=== PATIENT | male | born 1955 | race Caucasian/White ===

== ENCOUNTER → 2017-10-18 | Outpatient (CLI) | payer OTHER ==
[~2017-10-18] MED LIST: ASPI81TA28 PO; ATOR10TA82 PO; LISI-725 PO; OMEG10007 PO; OXYC-57 PO
--- NOTE | 2017-10-18 14:47 | DIAGNOSTIC IMAGING REPORT ---
ABDOMEN ULTRASOUND FOR HERNIA CLINICAL HISTORY: ABD/PELVIC PAIN,POSSIBLE HERNIA COMPARISON STUDY: None. FINDINGS: Real-time sonographic imaging of the right inguinal region was performed. There is a small nonreducible fat-containing right inguinal hernia. No bowel identified within the hernia sac. No lymph nodes are masses within the right groin. IMPRESSION: Small nonreducible fat-containing right inguinal hernia. Electronically signed by: Henrry Moore M.D. 10/18/2017 2:45 PM Dictated Date/Time: 10/18/2017 2:45 PM
== END | disposition home or self-care (01) ==
LOC: C.ULTR 14:10
PROVIDERS: ATTEND Family Medicine
DX: R10.2 Pelvic and perineal pain (principal); K40.90 Unilateral inguinal hernia, without obstruction or gangrene, not specified as recurrent

== ENCOUNTER → 2017-10-24 | Outpatient (CLI) | payer OTHER ==
--- NOTE | 2017-10-24 11:56 | DIAGNOSTIC IMAGING REPORT ---
CHEST 2 VIEWS ROUTINE CLINICAL HISTORY: PAT preoperative COMPARISON STUDY: No previous studies for comparison. FINDINGS: The bones soft tissues and hemidiaphragms are normal. The cardiomediastinal silhouette is normal. The lungs are clear. The pulmonary vasculature is normal. IMPRESSION: Negative chest. The above report was generated using voice recognition software. It may contain grammatical, syntax or spelling errors. Electronically signed by: Leandro Guadalupe M.D. 10/24/2017 11:54 AM Dictated Date/Time: 10/24/2017 11:54 AM
[2017-10-24 13:05] LABS: BASO % 0.4 %; BASO ABS # 0.02 K/uL (0-0.2); EOS % 1.2 %; EOS ABS # 0.06 K/uL (0-0.5); HEMATOCRIT 43.7 % (42-52); HEMOGLOBIN 14.4 g/dL (14.0-18.0); LYMPH % 35.5 %; LYMPH ABS # 1.77 K/uL (1.2-3.4); MEAN CELL VOLUME 85.2 fL (80-100); MEAN CORPUSCULAR HEMOGLOBIN 28.1 pg (25-34); MEAN PLATELET VOLUME 13.4 fL (7.4-10.4); MONO % 9.2 %; MONO ABS # 0.46 K/uL (0.11-0.59); NEUT % 53.7 %; NEUT ABS # 2.67 K/uL (1.4-6.5); PLATELET COUNT 162 K/uL (130-400); RED CELL DISTRIBUTION WIDTH SD 43.4 fL (36.4-46.3); WHITE BLOOD COUNT 4.98 K/uL (4.8-10.8)
[2017-10-24 13:44] LABS: ALBUMIN 4.2 gm/dl (3.4-5.0); TOTAL PROTEIN 7.4 gm/dl (6.4-8.2)
== END | disposition home or self-care (01) ==
LOC: C.CPL 14:29
PROVIDERS: ATTEND Surgery
DX: Z01.812 Encounter for preprocedural laboratory examination (principal); Z01.810 Encounter for preprocedural cardiovascular examination

== ENCOUNTER 2017-10-31 09:34 | Day surgery (SDC) | payer OTHER ==
[2017-10-23 14:55] VITALS: BMI 34.0
[2017-10-24 11:56] VITALS: BMI 34.0
[~2017-10-31] VITALS: Ht 188 cm; Wt 120.9 kg
[~2017-10-31 09:34] MED LIST changes: +CEFAZOLIN 3000MG IV PUSH 22.5 ML IV SCH; +LACTATED RINGER'S 1000ML 1,000 ML IV SCH; -OXYC-57 PO
[2017-10-31 10:01] VITALS: BP 152/98; PULSE 64; TEMP 36.6; O2SAT 98; Ht 188 cm; Wt 120.9 kg
--- NOTE | 2017-10-31 11:05 | History & Physical Bridge Note ---
H&P Re-Evaluation Bridge Note: I have examined the patient, reviewed the History & Physical and in the interval since the performance of the History & Physical I have noted the following changes of clinical significance: No changes noted
[2017-10-31] MEDS ORDERED: DEXAMETHASONE SOD INJ 4 MG/ML VIAL ONE (13:06)
[2017-10-31] MEDS ORDERED: LIDOCAINE HCL 2% 2 ML VIAL (20MG/ML) ONE (13:06)
[2017-10-31] MEDS ORDERED: PHENYLEPHRINE HCL INJ 10 MG/ML VIAL ONE (13:06)
[2017-10-31] MEDS ORDERED: ONDANSETRON INJ 2 MG/ML 2 ML VIAL ONE (13:06)
[2017-10-31] MEDS ORDERED: SUCCINYLCHOLINE CHLORIDE 20 MG/ML 10 ML VIAL IV ONE (13:06)
[2017-10-31] MEDS ORDERED: EpHEDrine SULFATE INJ 50 MG/ML AMP ONE (13:06)
[2017-10-31] MEDS ORDERED: GLYCOPYRROLATE INJ 0.2 MG/ML VIAL ONE (13:06)
[2017-10-31] MEDS ORDERED: MIDAZOLAM HCL 1 MG/ML 2ML VIAL ONE (13:07)
[2017-10-31] MEDS ORDERED: PROPOFOL IV EMULSION 10 MG/ML 20 ML VIAL ONE (13:07)
[2017-10-31] MEDS ORDERED: NEOSTIGMINE METHYLSULFATE 5 MG/5 ML SYR ONE (13:07)
[2017-10-31] MEDS ORDERED: FENTANYL CITRATE INJ 50 MCG/1 ML 2 ML VIAL ONE (13:07)
[2017-10-31] MEDS ORDERED: BUPIVACAINE 0.5 % 5 MG/1 ML PF 10ML VIAL ONE (13:42)
[2017-10-31] MEDS ORDERED: OXYC-57 PO (14:02)
--- NOTE | 2017-10-31 14:03 | Discharge Instructions ---
Discharge Instructions Date of Service Oct 31, 2017. Visit Reason for Visit: Right Inguinal Hernia, Umbilical Hernia Discharge Discharge Diagnosis / Problem: hernia repairs Discharge Goals Goal(s): Decrease discomfort Activity Recommendations Activity Limitations: as noted below Lifting Limitations: no more than 10 pounds Shower/Bathe: no limitations Driving or Machine Use: 1 week Anesthesia . Post Anesthesia Instructions: If you have had General Anesthesia or IV Sedation: * Do not drive today. * Resume driving when surgeon permits. * Do not make important decisions or sign legal documents today. * Call surgeon for: 1. Temperature elevations greater than 101 degrees F. 2. Uncontrollable pain. 3. Excessive bleeding. 4. Persistent nausea and vomiting. 5. Medication intolerance (nausea, vomiting or rash). * For nausea and vomiting use only clear liquids such as: tea, soda, bouillon until nausea subsides, then gradually increase diet as tolerated. * If you have any concerns or questions, call your surgeon's office. If physician is unavailable and it is an emergency, call 911 or go to the nearest emergency room. . Instructions / Follow-Up Instructions / Follow-Up Chambers in 1-2 weeks, call [phone] if you have any questions Diet Recommendations Recommended Home Diet: no limitations Pending Studies Studies pending at discharge: no Medical Emergencies . Who to Call and When: Medical Emergencies: If at any time you feel your situation is an emergency, please call 911 immediately. . Non-Emergent Contact Non-Emergency issues call your: Surgeon Call Non-Emergent contact if: you have a fever, temperature is above 101.5, your pain is not controlled, wound has increased redness, wound has increased pain, you have any medication questions . . "Provider Documentation" section prepared by Krunal Max. .
[2017-10-31] MEDS ORDERED: HYDROmorphone INJ 2 MG/ML SYR/VIAL ONE (14:22)
[2017-10-31] MEDS ORDERED: ROCURONIUM BROMIDE 10 MG/ML 5 ML VIAL ONE (15:13)
--- NOTE | 2017-10-31 15:49 | [facility] Post Operative Brief Note ---
Immediate Operative Summary Operative Date Oct 31, 2017. Pre-Operative Diagnosis Right Inguinal Hernia, Possible Left Inguinal Hernia, Umbilical Hernia Post-Operative Diagnosis Right Inguinal Hernia, Umbilical Hernia Procedure(s) Performed Laparoscopic Right Inguinal Hernia Repair, Open Umbilical Hernia Repair Surgeon Dr. William Altman Travel Rn Surgeon(s) Artem Max PA-C Estimated Blood Loss 4 ml Findings Consistent with Post-Op Diagnosis indirect right inguinal hernia; umbilical hernia repair with mesh Specimens none per surgeon Drains None Anesthesia Type General Complication(s) none Disposition Accompanied Pt To Recover: no Disposition: Recovery Room / PACU
[2017-10-31] MEDS ORDERED: LACTATED RINGER'S 1000ML 1,000 ML IV SCH (15:53)
--- NOTE | 2017-10-31 15:58 | [facility] Operative Report ---
Operative Report Operative Date Oct 31, 2017. Pre-Operative Diagnosis Right Inguinal Hernia, Possible Left Inguinal Hernia, Umbilical Hernia Post-Operative Diagnosis right indirect inguinal hernia; umbilical hernia Procedure(s) Performed Laparoscopic right inguinal hernia repair with mesh; umbilical hernia repair with mesh Surgeon Dr. William Altman Systems Requirements Planner Surgeon(s) Artem Max PA-C Estimated Blood Loss 4 ml Findings Indirect right inguinal hernia, pro-molded goods spot picker mesh placed. Left side not evaluated due to poor dissection. 3.5 cm umbilical hernia defect closed using 6.4 cm C- Qur mesh. Specimens none per surgeon Drains None Anesthesia General Complication(s) None Disposition Recovery Room / PACU Indications 62-year-old male with right inguinal hernia and umbilical hernia, plan for laparoscopic right inguinal hernia repair, possible left, open umbilical hernia repair. The risks of the procedure were discussed, all questions were answered , and the patient agreed to proceed with surgery as planned. Description of Procedure The patient was properly identified, consented, and taken to the operating room where he was placed in the supine position. General endotracheal anesthesia was induced. SCDs and a safety belt were placed. A mora catheter was placed. Preoperative antibiotics were administered. The patient's groins and abdomen were prepped and draped in the standard sterile fashion. Surgical timeout was performed and all parties were in agreement that this was the correct patient and procedure to be performed and we continued as planned. A curvilinear infraumbilical incision was made with electrocautery and deepened down to the fascia with blunt dissection. A transverse incision was made in the anterior rectus sheath on the right. The rectus muscle was pulled laterally exposing the posterior rectus sheath. A large Xochilt was used to bluntly dissect the preperitoneal space down to the pubic symphysis. This was then replaced with a laparoscopic preperitoneal dissection balloon, which was inflated under direct visualization and held in place for approximately 30 seconds. This was then removed and the preperitoneal space was insufflated with carbon dioxide which the patient tolerated without incident. Two 5 mm ports were then placed in the midline. Dissection started on the right, beginning laterally at the anterior superior iliac spine. Osman's ligament was then dissected medially. The cord structures were circumferentially dissected. A moderate sized indirect hernia was noted. It was dissected away from the cord structures and reduced. The dissection balloon did not seem to adequately dissect the left side, therefore we decided not to evaluate the left side for an inguinal hernia. Progrip mesh was placed on the right and covered the direct, indirect, and femoral spaces. The mesh was held in place, the ports were removed, and the space was allowed to collapse. The anterior rectus sheath fascia was closed with 0 Vicryl suture. Attention then turned to the umbilical hernia repair. The umbilical stalk was circumferentially dissected with a Xochilt, and divided below the level of the skin. A 3.5 cm fascial defect was encountered. The hernia was reduced. The fascia anteriorly and posteriorly was cleared of investing tissue for several centimeters. Hemostasis was achieved within the wound. A 6.4 cm piece of C-Qur mesh was sown into place with interrupted 0 Nurolon sutures. The wound was irrigated and hemostasis confirmed. The umbilicus was tacked down to the fascia with 3-0 Vicryl sutures. Local anesthetic in the form of 0.5% Marcaine was injected in the fascia and along the skin incision. The skin was closed with interrupted 3-0 Vicryl deep dermal sutures, followed by 4-0 Monocryl running subcuticular suture. The skin of all port sites were closed with 4-0 Monocryl subcuticular suture, and Dermabond was placed over the incisions. The patient was extubated in the operating room and taken to the PACU for recovery without apparent incident. Any air in the scrotum was reduced, and the testicles were confirmed to be in the scrotum. All sponge, instrument, and needle counts were correct at the conclusion of the procedure. The patient tolerated the procedure well. The physician's teachers' assistant was present and scrubbed for the entire to the procedure. He was critical in positioning the patient, prepping and draping, retraction and exposure, driving the laparoscope, repair of the hernias, closure of the incisions, and placement of the dressings. I attest to the content of the Intraoperative Record and any orders documented therein. Any exceptions are noted below.
[2017-10-31] MEDS ORDERED: OXYCODONE/ACETAMINOPHEN 5-325 TAB PO PRN (16:00)
[2017-10-31] MEDS ORDERED: ONDANSETRON INJ 2 MG/ML 2 ML VIAL IV PRN ×2 (16:00→16:30)
[2017-10-31] MEDS ORDERED: MoRPHine SULFATE 4 MG/ML 1 ML CARP\\VIAL IV PRN (16:00)
[2017-10-31] MEDS ORDERED: EpHEDrine SULFATE INJ 50 MG/ML AMP IV PRN (16:30)
[2017-10-31] MEDS ORDERED: FENTANYL CITRATE INJ 50 MCG/1 ML 2 ML VIAL IV PRN (16:30)
[2017-10-31] MEDS ORDERED: HYDROmorphone INJ 1 MG/ML SYR IV PRN (16:30)
[2017-10-31] MEDS ORDERED: ATROPINE SULFATE 0.1 MG/ML 5ML SYR IV PRN (16:30)
[2017-10-31] MEDS ORDERED: MEPERIDINE HCL 25 MG/ML CARP IV PRN (16:30)
[2017-10-31] MEDS ORDERED: LABETALOL HCL IV 5 MG/ML 20ML IV PRN (16:30)
[2017-10-31 17:00] VITALS: BP 157/101; PULSE 61; TEMP 36.6; O2SAT 99
--- NOTE | 2017-10-31 17:00 | Anesthesiology Progress Note ---
Anesthesia Post Op Note Date & Time Oct 31, 2017 at 17:00 Vital Signs Pain Intensity: 0 Vital Signs Past 12 Hours Date Time Temp Pulse Resp B/P (MAP) Pulse Ox O2 Delivery O2 Flow Rate FiO2 10/31/17 16:45 36.1 64 12 156/106 100 Nasal Cannula 2 10/31/17 16:35 67 19 152/102 100 Nasal Cannula 2 10/31/17 16:25 61 15 147/86 100 Oxymask 10 10/31/17 16:15 62 15 153/100 100 Oxymask 10 10/31/17 16:07 36.1 70 17 165/98 98 Oxymask 10 10/31/17 10:01 36.6 64 18 152/98 (116) 98 Room Air Notes Mental Status: alert / awake / arousable, participated in evaluation Pt Amnestic to Procedure: Yes Nausea / Vomiting: adequately controlled Pain: adequately controlled Airway Patency, RR, SpO2: stable & adequate BP & HR: stable & adequate Hydration State: stable & adequate Anesthetic Complications: no major complications apparent
[2017-10-31 17:30] VITALS: BP 158/100; PULSE 55; TEMP 36.1; O2SAT 99
[2017-10-31 17:59] VITALS: BP 158/99; PULSE 70; TEMP 36.6; O2SAT 97
== END 2017-10-31 18:30 | disposition home or self-care (01) ==
LOC: C.ACU 09:34
PROVIDERS: ATTEND Surgery
DX: K40.90 Unilateral inguinal hernia, without obstruction or gangrene, not specified as recurrent (principal); K42.9 Umbilical hernia without obstruction or gangrene; I10 Essential (primary) hypertension; E78.5 Hyperlipidemia, unspecified; Z79.82 Long term (current) use of aspirin; K21.9 Gastro-esophageal reflux disease without esophagitis; E66.9 Obesity, unspecified; Z87.891 Personal history of nicotine dependence